=== PATIENT | male | born 1970 | race Caucasian/White ===

== ENCOUNTER 2024-10-23 11:34 | Emergency (ER) | payer OTHER ==
[~2024-10-23] VITALS: Ht 177.8 cm; Wt 105.0 kg
[2024-10-23 11:45] VITALS: BP 130/84
[2024-10-23] MEDS ORDERED: KETOROLAC TROMETHAMINE 30 MG/ML SDV IM ONE (12:00)
[2024-10-23 12:01] VITALS: BP 126/85
[2024-10-23 12:15] VITALS: BP 133/90
[2024-10-23 12:31] VITALS: BP 136/85
[2024-10-23 12:46] VITALS: BP 126/82
[2024-10-23] MEDS ORDERED: LORTAB 1010 MG PO (12:48)
[2024-10-23 12:58] VITALS: BP 126/82
== END 2024-10-23 13:07 | disposition home or self-care (01) | DRG 558 ==
LOC: ED 11:34
DX: M75.21 Bicipital tendinitis, right shoulder (principal)